=== PATIENT | male | born 1955 | race Caucasian/White ===

== ENCOUNTER 2023-02-22 09:06 | Day surgery (SDC) | payer OTHER ==
[2023-02-22] VITALS (8 sets, daily range): BP systolic 126–164; BP diastolic 63–93
[~2023-02-22] VITALS: Ht 172.7 cm; Wt 80.0 kg
[~2023-02-22 09:06] MED LIST: AMLO5 PO; LOSA50 PO; TAMS.4ER PO
[2023-02-22] MEDS ORDERED: ROCKLATAN 0.022.5 M1 (09:50)
[2023-02-22] MEDS ORDERED: DORZOLAMIDE 2%10 M1 (09:51)
[2023-02-22] MEDS ORDERED: Alphagan P5 ML BOTHEYES (09:53)
--- NOTE | 2023-02-22 10:01 | NUR ---
Ambulatory in Day Surgery Patient confirms NPO status and agrees with scheduled surgery. Pre-Op teaching done. Pt verbalizes understanding. History, Chart, Medications and Allergies reviewed before start of procedure.Patient States Post-Procedure ride home has been arranged.
[2023-02-22 10:06] LABS: Bun/Creatinine Ratio 13.5 (12.0-20.0); Calcium, Blood 8.7 mg/dL (8.5-10.1); Creatinine, Blood 0.74 mg/dL (0.60-1.20); Potassium, Blood 4.4 mmol/L (3.5-5.5)
--- NOTE | 2023-02-22 13:26 | NUR ---
PT TO DAY SURGERY STEP DOWN UNIT. PT HAS 3 INCISION SITES THAT ARE C/D/I WITH DERMABOND. PT REPORTS NO PAIN; REQUESTING WATER AND CRACKERS.
--- NOTE | 2023-02-22 13:41 | NUR ---
PT TOLERATING PO FLUIDS AND CRACKERS WELL. INCISIONS REMAIN C/D/I. ABHI, , AT BEDSIDE.
--- NOTE | 2023-02-22 14:15 | NUR ---
PT DESIRES TO GO HOME. DENIES PAIN, DECLINES PAIN MEDICATION. ICE PACK GIVEN. Discharge instructions reviewed with patient. Patient verbalizes understanding. Copy given to patient to take home. Patient up to Ambulate independently. Gait steady. Patient States Post-Procedure ride home has been arranged.
--- NOTE | 2023-02-22 14:16 | NUR ---
Discharged via wheelchair to private car for ride home.
== END 2023-02-22 14:18 | disposition home or self-care (01) ==
LOC: ORSCMMR 09:06 → ORD 10:30 → ORSCMMR 10:30
PROVIDERS: Surgery
PROC: 0YUA4JZ Supplement Bilateral Inguinal Region with Synthetic Substitute, Percutaneous Endoscopic Approach (ICD-10-PCS; principal; 2023-02-22 10:30)
PROC: 0YUE4JZ Supplement Bilateral Femoral Region with Synthetic Substitute, Percutaneous Endoscopic Approach (ICD-10-PCS; principal; 2023-02-22 10:30)
DX: K40.00 Bilateral inguinal hernia, with obstruction, without gangrene, not specified as recurrent (principal); K41.20 Bilateral femoral hernia, without obstruction or gangrene, not specified as recurrent; K43.9 Ventral hernia without obstruction or gangrene; K45.8 Other specified abdominal hernia without obstruction or gangrene; D17.6 Benign lipomatous neoplasm of spermatic cord; I10 Essential (primary) hypertension
CPT/HCPCS: 80048; 93005; 93010; C1781; J1100; J1885; J2250; J2405; J2704; J3010; J7120